=== PATIENT | female | born 1970 | race Caucasian/White ===

== ENCOUNTER → 2017-07-02 10:54 | Outpatient (CLI) | payer OTHER, SELFPAY ==
--- NOTE | 2017-07-02 10:56 | RAD_ITS ---
STUDY: X-RAY - RIGHT KNEE REASON FOR EXAM: Female, 46 years old. Chronic knee pain. TECHNIQUE: 4 view(s) of the knee. COMPARISON: None. FINDINGS: Normal visualized distal femur. Normal visualized proximal tibia and fibula. Normal proximal tibiofibular articulation. There is moderate degenerative arthrosis of the medial femorotibial compartment with moderate joint space narrowing. Normal lateral femorotibial compartment. There is mild degenerative arthrosis of the patellofemoral articulation. Calcification of the lateral meniscus in keeping with chondrocalcinosis. Minimal joint effusion. RAD/Knee 4 or More Views IMPRESSION: Degenerative arthrosis. Chondrocalcinosis. Electronically Signed: Peng Hair MD at 14:39 EST Tel [phone], Service support ,
== END ==
PROVIDERS: Visit Provider Orthopaedic Surgery
DX: M23.8X1 Other internal derangements of right knee (principal)
CPT/HCPCS: 73564

== ENCOUNTER 2017-09-25 05:52 | Inpatient (IN) | payer OTHER, SELFPAY ==
[2017-09-18 11:15] VITALS: BP 159/83; PULSE 75; RESP 16; TEMP 36.8; O2SAT 95; BMI 38.0
[2017-09-18 12:23] LABS: Mean Corpuscular Hgb 30.8 pg (27.0-32.0); Mean Corpuscular Volume 90.4 fL (81-99); Mean Platelet Vol. 9.3 fl (6.2-12.0); Platelet Count 237 K/mm3 (150-450); RBC Distribution Width CV 13.3 % (11.6-14.6); RBC Distribution Width SD 43.3 fl (35.1-43.9); White Blood Count 6.1 K/mm3 (4.4-11.0)
[2017-09-18 12:25] LABS: Scan Indicated on CBC? Y/N NO
[2017-09-18 12:48] LABS: Anion Gap 8 (5-15); BUN 12 mg/dL (7-18); BUN/Creat Ratio 14.7 RATIO (10-20); Calcium,Total 8.8 mg/dL (8.5-10.1); Chloride 105 mmol/L (98-107); Creatinine, Serum 0.82 mg/dL (0.55-1.02); EST Glomerular Filtration Rate 80 mL/min (>60); Est Glom Filt Rate - Afr Amer 97 mL/min (>60); Estimated Creatinine Clearance 84.25 ml/min; Glucose 82 mg/dL (74-106); Sodium Level 140 mmol/L (136-145)
--- NOTE | 2017-09-24 15:09 | CASEMGMT ---
CHANDAN POPE called and spoke with patient regarding discharge needs after upcoming surgery. Patient states she lives in a 2 story house with bed and bath setup on first floor. Patient lives with spouse and family. Patient states that she will be homebound and would like HHC for therapy for the first few weeks. Patient states that she needs a walker as well. CHANDAN POPE will assist with setting up HHC and obtaining script for FWW. CHANDAN POPE will follow up with patient after surgery and will assist with discharge needs. Disposition Plan: Patient to discharge home with HHC, family support, and follow-up plans in place.
[2017-09-25] VITALS (10 sets, daily range): BP systolic 119–159; BP diastolic 67–101; PULSE 60–73; RESP 16–18; TEMP 36.1–37.1; O2SAT 91–98; BMI 38.0
[2017-09-25] MEDS: Celecoxib 200 MG Capsule PO (06:24)
[2017-09-25] MEDS: oxyCODONE HCl Cr 10 MG Tablet PO ×2 (06:24→21:38)
[2017-09-25] MEDS: Lactated Ringers 1,000 ML 75 ML IV (06:50)
--- NOTE | 2017-09-25 07:15 | KNEE_PTH ---
PATIENT: JULISSA MCCLELLAND LOC: [facility]3 U#:[id number] AGE/SX: 46/F ROOM: MS316 RE09/25/[address]: Phil Jaramillo DO : 1970 BED: 1 DIS: 09/27/2017 SPEC #: [id number] RECD: 09/25/17 10:45 STATUS: SURAJ REIrma #: [id number] FRANCHESKA: 09/25/17 07:[address]: Phil Jaramillo DEPT: SURGICAL PATHOLOGY RECD BY: Armani Ugalde ENTERED: 09/25/17 12:23 SP TYPE: TOTAL KNEE OTHR DR: Dr. Mika Avila MD Tissues: Knee, NOS Procedures: Decalcification bone/plaque Surgery Specimen Level IV HEADER OPERATION: Total knee replacement PRE-OP DIAGNOSIS: Primary osteoarthritis of right knee, effusion right knee TISSUE SUBMITTED: Bone and tissue of right knee MICROSCOPIC DIAGNOSIS Bone and soft tissue of right knee, total knee resection: Severe degenerative joint disease. Mild synovial hyperplasia with associated mild chronic inflammation. AM:rajeev 09/28/17 MICROSCOPIC DESCRIPTION Slides are reviewed. GROSS DESCRIPTION Received is one container designated bone and soft tissue right knee. The specimen consists of multiple fragments of carlson-yellow bone measuring in aggregate 14 x 11 x 1.5 cm. Also in the specimen container are multiple fragments of yellow-white soft tissue measuring in aggregate 10 x 9 x 2 cm. A number of bony fragments contain articular surfaces consistent with tibial plateau and femoral condyle and displaying prominent osteophyte formation, eburnation, and bone erosion. Sterile Processing Technician sections are submitted in two cassettes as follows: 1 - soft tissue, 2 - bone after decalcification. / AM:rajeev 09/25/17 TC:5 [facility] [place]: [id number]
[2017-09-25] MEDS: Clindamycin 900 MG/50 ML BAG 75 MG IV (07:25)
--- NOTE | 2017-09-25 09:16 | PCM.IMDPSTOP ---
Immediate Post-Op Note Date of Procedure: 09/25/17 Primary Surgeon/Physician: Phil Jaramillo DO elevator pilot: Eduardo Montelongo Pre-Operative Diagnosis: Right knee osteoarthritis, history of psoriasis Post-Operative Diagnosis: Same as above Surgery/Procedure Performed:: Right total knee arthroplasty-Hema pawel Description of Surgical Findings:: See dictation Estimated Blood Loss: 50 Specimen's removed: Bone cuts Type of Anesthesia:: Spinal ASA Class: ASA2 Mod Systematic Disease - Admit VTE Documentation VTE Present on Admission: No VTE Mechan Device Prophylaxis: SCD's, Knee High PHILIPP Hose VTE Pharm Prophylaxis ordered?: Yes
--- NOTE | 2017-09-25 09:40 | RAD_ITS ---
STUDY: X-RAY - RIGHT KNEE REASON FOR EXAM: Female, 46 years old. Postoperative. TECHNIQUE: 2 view(s) of the knee. COMPARISON: None. FINDINGS: The patient is status post arthroplasty appearing in anatomic alignment. There are typical and expected immediate postoperative soft tissue findings. There is no significant incidental finding. RAD/Knee 1 or 2 Views IMPRESSION: Postoperative right knee arthroplasty in anatomic alignment. Typical and expected immediate postoperative soft tissue findings. No significant incidental finding. Electronically Signed: Moises Hutton MD at 10:10 EDT , Service support ,
[2017-09-25] MEDS: Ketorolac 15 MG/ML Vial IV (10:12)
--- NOTE | 2017-09-25 12:01 | PCM.OPRPT ---
Report of Operation Date of Procedure: 09/25/17 Pre-Operative Diagnosis: Right knee osteoarthritis, history of psoriasis Post-Operative Diagnosis: Same as above Surgery/Procedure Performed:: Right total knee arthroplasty-Ebervale pawel Description of Surgical Findings:: 46-year-old female with recalcitrant right knee pain that failed nonoperative management to include NSAIDs activity modifications physical therapy and a series of injections. Patient also had a previous diagnostic scope and meniscus debridement that showed high-grade chondromalacia to the patellofemoral joint in the medial compartment. Patient had a recent MRI that showed degenerative changes across the medial compartment was extruded medial meniscus significant effusion and osteoarthritis the patellofemoral joint. Having failed conservative measures and activities of daily living being affected including difficulty with work and standing for extended periods of time patient elected for operative intervention. Patient was counseled and consented for the aforementioned procedure. She is met in the holding area with the right lower extremity was marked and identified by the with surgeon. Patient was taken to the operating room in satisfactory condition with somewhat to place to identify patient operative procedure and limb. Patient received 900 clindamycin due to penicillin allergy. She also received 1 g of TXA. She had a well-placed tourniquet to the right proximal thigh after a successful spinal anesthesia. Patient was then prepped and draped in usual fashion. Right lower extremity was elevated Esmarch used for exsanguination and tourniquet was increased to 250 mmHg for roughly 60 minutes. Patient then had a longitudinal incision made 2 fingerbreadths above the patella down to the tibial tubercle. She then underwent a standard medial parapatellar approach. There was a large return effusion and the patient showed significant synovitis within knee joint probably consistent with her psoriasis and perhaps an underlying early psoriatic arthritis. Partial synovectomy was then undertaken. Anterior fat pad was resected. Patella was translated medially. We then made our standard intramedullary cut in order to pass the distal femoral cutting block. Patient had no flexion contracture she we took 8 mm with a 6? valgus cut off the distal femur. We then turned our attention to sizing. The patient sized to a size 3 femur. Standard cutting jig was placed and performed standard cuts. We then turned our attention to the proximal tibia cut. 3? of slope in anticipation of using CR components. Standard cut was performed with 2 mm off the medial aspect of the knee. We then placed a 9 mm spacer block to establish our flexion extension gaps. With excellent mechanical alignment and overall no signs of knee flexion extension gap abnormalities. The leg was then brought back in full extension and the remnant menisci were resected. The posterior lateral and anterior lateral geniculate vessels were then cauterized. PCL again was preserved. At that point time we turned our attention to sizing the patella. The patient's overall patella was roughly 22 mm in thickness we took off 10 and the patient sized to a size 32 asymmetric patella. Standard drill holes were placed in anticipation of a cemented patella component. The tibia and femur were then prepped using standard technique in anticipation of using press-fit components. Tibial guide had been seated in appropriate keel punch placed. We felt that the patient's tibia sized better to a size 4 tibial tray. The wound was then copiously irrigated excess debris was removed. Cement was prepared the back table using standard technique. We then impacted our tibial tray placed a 9 mm spacer and then introduced our press-fit femoral component. Overall alignment and mechanical stability was preserved. We then elected to implant a 9 mm CS Claudine. This was done using standard technique. We then placed our patella button using standard technique using a cemented technique. Cement cured. Upon completion range of motion was checked patient had excellent patellar tracking. We then copiously irrigated the joint additional multitude of times and then began our closure. The soft tissues were closed with the distal two thirds closed in 30? of knee flexion using #2 Vicryl and [id number] technique. The proximal one third was closed in full extension. Soft tissue was reapproximated 2-0 Vicryl running subicular Monocryl Dermabond and then a Silverlon dressing was applied. Tourniquet was let down during final closure at roughly 70 minutes. I was scrubbed and available time during our procedure. We had no drains or complications. Implants included the Ebervale triathlon 3 femur CR, 4 mm tibial tray 9 mm CS Claudine and a 32 patella button. All components were press-fit except for the patella which was cemented. Patient will be admitted to floor for 24 hours of IV antibiotics appropriate IV and p.o. pain medication and DVT prophylaxis to include SCDs teds and 325 p.o. twice daily of aspirin with GI prophylaxis. If you require any further formation please and visit contact me. energy management specialist: Eduardo Montelongo Type of Anesthesia:: Spinal Specimen's removed: Bone cuts Estimated Blood Loss (mL): 50 Grafts/Implants Used: Striker triathlon press-fit - Complications None - Admit VTE Documentation VTE Mechan Device Prophylaxis: SCD's, Knee High PHILIPP Fernando VTE Pharm Prophylaxis ordered?: Yes
[2017-09-25] MEDS: Morphine 2 MG/ML Syringe IV (12:52)
[2017-09-25] MEDS: Clindamycin 600 MG/50 ML BAG 100 MG IV ×2 (14:22→18:48)
[2017-09-25] MEDS: Famotidine 20 MG Tablet PO (14:27)
[2017-09-25] MEDS: DULoxetine Hcl 60 MG Capsule PO (14:27)
[2017-09-25] MEDS: Acetaminophen 500 MG Tablet 1000 MG PO ×2 (14:28→21:37)
[2017-09-25] MEDS: oxyCODONE 5 MG Tablet PO ×3 (14:31→23:57)
[2017-09-25] MEDS: Ascorbic Acid 500 MG Tablet PO (16:55)
[2017-09-25] MEDS: Senna/Docusate Sodium 1 Tablet 2 TABLET PO (21:37)
[2017-09-25] MEDS: Losartan Potassium 100 MG Tablet PO (21:38)
[2017-09-25] MEDS: amLODIPine 2.5 MG Tablet 5 MG PO (21:38)
[2017-09-25] MEDS: Atorvastatin Calcium 10 MG Tablet PO (21:38)
[2017-09-26] MEDS: 0.9% NaCl Peripheral Flush Adult/Peds IV ×2 (02:14→11:44)
[2017-09-26] MEDS: Clindamycin 600 MG/50 ML BAG 100 MG IV (02:14)
[2017-09-26 02:17] VITALS: BP 146/83; PULSE 76; RESP 18; TEMP 36.7; O2SAT 96
[2017-09-26] MEDS: Acetaminophen 500 MG Tablet 1000 MG PO ×3 (06:18→21:10)
[2017-09-26] MEDS: traMADol 50 MG Tablet PO (06:26)
[2017-09-26 07:03] LABS: Hematocrit 42.1 % (37-47); Hemoglobin 14.2 g/dl (12.0-15.0); Mean Corp Hgb Conc 33.7 g/gl (32-36); Mean Corpuscular Volume 91.9 fL (81-99); Mean Platelet Vol. 9.7 fl (6.2-12.0); Platelet Count 240 K/mm3 (150-450); RBC Distribution Width CV 13.7 % (11.6-14.6); RBC Distribution Width SD 45.2 fl (35.1-43.9); Red Blood Count 4.58 M/mm3 (4.2-5.4); White Blood Count 6.4 K/mm3 (4.4-11.0)
[2017-09-26 07:15] LABS: Scan Indicated on CBC? Y/N NO
[2017-09-26 07:25] LABS: Anion Gap 8 (5-15); BUN 9 mg/dL (7-18); BUN/Creat Ratio 11.1 RATIO (10-20); Calcium,Total 8.3 mg/dL (8.5-10.1); Chloride 106 mmol/L (98-107); Creatinine, Serum 0.81 mg/dL (0.55-1.02); EST Glomerular Filtration Rate 81 mL/min (>60); Est Glom Filt Rate - Afr Amer 98 mL/min (>60); Estimated Creatinine Clearance 85.29 ml/min; Glucose 112 mg/dL (74-106); Potassium 3.8 mmol/L (3.5-5.1); Sodium Level 139 mmol/L (136-145)
[2017-09-26 07:44] VITALS: BP 172/82; PULSE 81; RESP 18; TEMP 36.9; O2SAT 98
--- NOTE | 2017-09-26 07:47 | PCM.PN.ORT ---
Subjective: Postop day 1 status post right total knee arthroplasty. No major issues overnight. Patient states that she has been up moving and was sitting with her knee bent as of yesterday. Currently is just gotten up for breakfast this point time but states that her pain is controlled at this point. Patient anticipates doing outpatient physical therapy. No other issues at this time. No other fevers chills nausea vomiting chest pain or shortness of breath noted. - Physical Exam General: Alert, Oriented x3, Cooperative, No apparent distress Musculoskeletal: - - Distally neurovascular intact. SCDs teds in place. No calf pain negative Homans. Range of motion 0-45 after having just woken up. Lab values reviewed and stable. Hardware otherwise well seated well-placed. Vital Signs Temp Pulse Resp BP Pulse Ox 98.4 F 81 18 172/82 H 98 09/26/17 07:44 09/26/17 07:44 09/26/17 07:44 09/26/17 07:44 09/26/17 07:44 Oxygen Delivery Method Room Air Weight: 243 lb 2.718 oz Body Mass Index (BMI) 38.0 Intake and Output for Last 24 Hours 09/24/17 09/25/17 09/26/17 23:59 23:59 23:59 Intake Total 1797 / 1797 1394 / 1394 Balance 1797 / 1797 1394 / 1394 Laboratory Tests Past 24 Hrs 09/26/17 09/26/17 05:46 05:46 WBC 6.4 RBC 4.58 Hgb 14.2 Hct 42.1 MCV 91.9 MCH 31.0 MCHC 33.7 RDW 13.7 RDW Differential 45.2 H Plt Count 240 MPV 9.7 Sodium 139 Potassium 3.8 Chloride 106 Carbon Dioxide 25.0 Anion Gap 8 BUN 9 Creatinine 0.81 Estim Creat Clear Calc 85.29 Est GFR (MDRD) Af Amer 98 Est GFR (MDRD) Non-Af 81 BUN/Creatinine Ratio 11.1 Glucose 112 H Calcium 8.3 L Medical Necessity - Tobacco Use Smoking Status: Light Smoker (<10/day) Assessment/Plan Assessment: After orthopedics status post right total knee arthroplasty doing well. Plan: This point time discontinue to advanced through the total knee protocol. Anticipate discharge home either later today if the patient is doing very well versus tomorrow. Patient anticipates performing outpatient physical therapy. There are any issues please contact me.
[2017-09-26] MEDS: Famotidine 20 MG Tablet PO (07:48)
[2017-09-26] MEDS: Ascorbic Acid 500 MG Tablet PO ×2 (07:48→16:59)
[2017-09-26] MEDS: Multivitamins,Therapeutic Tablet 1 TABLET PO (07:48)
[2017-09-26] MEDS: Aspirin 325 MG Tablet PO ×2 (07:48→16:59)
[2017-09-26] MEDS: DULoxetine Hcl 60 MG Capsule PO (07:48)
[2017-09-26] MEDS: Senna/Docusate Sodium 1 Tablet 2 TABLET PO ×2 (07:52→21:10)
[2017-09-26] MEDS: oxyCODONE HCl Cr 10 MG Tablet PO ×2 (09:47→22:35)
--- NOTE | 2017-09-26 11:16 | CASEMGMT ---
RN CM Face to Face with patient for initial transition planning/care coordination assessment. RN CM introduced self and role at [facility]. Patient sitting in chair, alert and oriented. Patient willing to participate in assessment and is able to answer all questions appropriately. Care providers, pharmacy, and demographics verified. Patient states that she needs a walker which RN CM will assist in obtaining script and arrange for delivery to hospital prior to discharge. Patient wishes to discharge home with [facility] and is agreeable to [facility]. Patient states she has no further needs or concerns at this time. RN CM sent referral to [facility] and they are able to accept the patient. CM to follow for discharge planning needs that may arise. Disposition Plan: Patient to discharge home with [facility], family support, and follow-up plans in place.
[2017-09-26] MEDS: oxyCODONE 5 MG Tablet PO ×2 (11:43→19:06)
[2017-09-26] MEDS: Ondansetron 4 MG/2 ML Vial IV (11:44)
[2017-09-26 13:45] VITALS: BP 176/95; PULSE 67; RESP 18; TEMP 36.9; O2SAT 97
[2017-09-26 16:57] VITALS: BP 153/95
[2017-09-26 20:47] VITALS: BP 157/81; PULSE 69; RESP 18; TEMP 36.4; O2SAT 99
[2017-09-26] MEDS: amLODIPine 2.5 MG Tablet 5 MG PO (21:10)
[2017-09-26] MEDS: Losartan Potassium 100 MG Tablet PO (21:11)
[2017-09-26] MEDS: Atorvastatin Calcium 10 MG Tablet PO (21:11)
[2017-09-27] MEDS: traMADol 50 MG Tablet PO (00:58)
[2017-09-27 02:29] VITALS: BP 159/71; PULSE 73; RESP 18; TEMP 36.8; O2SAT 98
[2017-09-27] MEDS: Acetaminophen 500 MG Tablet 1000 MG PO (05:56)
[2017-09-27 06:05] LABS: Hematocrit 41.9 % (37-47); Hemoglobin 14.1 g/dl (12.0-15.0); Mean Corp Hgb Conc 33.7 g/gl (32-36); Mean Corpuscular Hgb 30.9 pg (27.0-32.0); Mean Corpuscular Volume 91.9 fL (81-99); Mean Platelet Vol. 9.1 fl (6.2-12.0); Platelet Count 250 K/mm3 (150-450); RBC Distribution Width CV 13.5 % (11.6-14.6); Red Blood Count 4.56 M/mm3 (4.2-5.4); White Blood Count 7.7 K/mm3 (4.4-11.0)
[2017-09-27 06:11] LABS: Scan Indicated on CBC? Y/N NO
[2017-09-27 06:24] LABS: Anion Gap 7 (5-15); BUN 7 mg/dL (7-18); BUN/Creat Ratio 8.3 RATIO (10-20); Calcium,Total 8.7 mg/dL (8.5-10.1); Chloride 104 mmol/L (98-107); Creatinine, Serum 0.85 mg/dL (0.55-1.02); EST Glomerular Filtration Rate 77 mL/min (>60); Est Glom Filt Rate - Afr Amer 93 mL/min (>60); Estimated Creatinine Clearance 81.28 ml/min; Glucose 123 mg/dL (74-106); Potassium 3.8 mmol/L (3.5-5.1); Sodium Level 138 mmol/L (136-145)
--- NOTE | 2017-09-27 07:03 | PCM.DC.TKR ---
Discharge Activity: Return to Normal Activity, May not drive while taking narcotic pain medications., May Shower, Use Walker May shower in (days): 1 May resume sexual activity in: No Restrictions Ice area for (Minutes): 20 Weight Bearing Status: Weight bearing as tolerated Elevate: Right Leg Additional Activity Instructions:: Flex and extend knee ad elisabeth. Work on aggressive range of motion. And gaining full extension. Call your doctor if your incision/area has: Continuous Slow Oozing, Sudden Increased Bleeding, Increased Pain/ Swelling, Increased Redness, Foul Smelling Discharge, Swelling at the incision site Call your doctor if you observe: Fever of 101 or Higher, Coldness, Increased Pain, Numbness or Tingling, Change in Color, Inability to urinate, Inability to have a bowel movement, Using more than one pad per hour, Shortness of breath, Dizziness, Fainting spells, Swelling in the ankles, Chest pain, Prolonged hiccoughing, Increased palpitations (irregular heartbeat), Calf discomfort, Uncontrolled pain Suture Line Care: Avoid Pulling/Pushing, Avoid Pinching/Bending Change Dressing in (Days):: 5 Remove Dressing in (days):: 5 Cleanse incision/area with: Soap & Water Additional Dressing/Incision Instructions:: Dressing stays on for 7 total days from date of operation unless there is sign of blister formation around edges. Dressing can then be removed and simple application of triple antibiotic Neosporin or bacitracin equivalent can be applied. Wash hands prior to touching wound. Allergies/Adverse Reactions: Allergies Penicillins Allergy (Verified 09/18/17 11:08) Epileptic fits pollen extracts Adverse Reaction (Intermediate, Verified 09/18/17 11:08) Hayfever symptoms hydrocodone bitartrate [From Lortab] Adverse Reaction (Verified 09/18/17 11:08) Hallucinations Medications to take at Discharge Duloxetine Hcl [Cymbalta] 60 mg PO DAILY 08/11/15 leflunomide 20 mg tablet 20 mg PO ONCE tab 07/02/17 atorvastatin 10 mg tablet 10 mg PO ONCE tab 09/05/17 amlodipine 2.5 mg tablet 5 mg PO .q day tab 09/14/17 furosemide 40 mg tablet 40 mg PO ONCE PRN 09/14/17 Losartan Potassium 100 mg PO ONCE 09/18/17 turmeric (bulk) 95 % powder 95 % MISCELLANEOUS BID 09/18/17 Aspirin E.C. [Ecotrin] 325 mg PO BID #30 tab 09/27/17 Docusate Sodium [Colace] 100 mg PO BID PRN PRN #10 cap 09/27/17 Famotidine [Pepcid] 40 mg PO DAILY #30 tab 09/27/17 Oxycodone HCl/Acetaminophen [Percocet 5/325] 1 - 2 tablet PO Q4H PRN PRN #60 tablet 09/27/17 proMETHazine tablet [Phenergan] 25 mg PO Q4H PRN PRN #10 tab 09/27/17 The following prescriptions were given: Oxycodone HCl/Acetaminophen [Percocet 5/325] 1 - 2 tablet PO Q4H PRN PRN #60 tablet PRN Reason: Pain proMETHazine tablet [Phenergan] 25 mg PO Q4H PRN PRN #10 tab PRN Reason: Nausea Docusate Sodium [Colace] 100 mg PO BID PRN PRN #10 cap PRN Reason: Constipation Famotidine [Pepcid] 40 mg PO DAILY #30 tab Aspirin E.C. [Ecotrin] 325 mg PO BID #30 tab Primary Care Physician: Mika Avila MD [Primary Care Provider] - Please Follow Up With: Phil Jaramillo DO When: call [facility] for appt for 2 weeks Proposed Discharge Date: 09/27/17
[2017-09-27] MEDS: Ascorbic Acid 500 MG Tablet PO (08:08)
[2017-09-27] MEDS: Aspirin 325 MG Tablet PO (08:08)
[2017-09-27] MEDS: Multivitamins,Therapeutic Tablet 1 TABLET PO (08:08)
[2017-09-27 08:09] VITALS: BP 160/94; PULSE 71; RESP 18; TEMP 36.8; O2SAT 97
[2017-09-27 09:50] VITALS: PULSE 76
[2017-09-27] MEDS: Famotidine 20 MG Tablet PO (09:56)
[2017-09-27] MEDS: DULoxetine Hcl 60 MG Capsule PO (09:56)
[2017-09-27] MEDS: Senna/Docusate Sodium 1 Tablet 2 TABLET PO (09:56)
[2017-09-27] MEDS: oxyCODONE HCl Cr 10 MG Tablet PO (09:57)
[2017-09-27 12:59] VITALS: BP 157/85; PULSE 77; RESP 18; TEMP 36.9; O2SAT 99
== END 2017-09-27 13:17 | disposition home or self-care (01) | DRG 470 ==
LOC: ACINP 05:53 → MS3 08:39
PROVIDERS: Admitting Provider Orthopaedic Surgery; Visit Provider Orthopaedic Surgery
PROC: 0SRC069 Replacement of Right Knee Joint with Oxidized Zirconium on Polyethylene Synthetic Substitute, Cemented, Open Approach (ICD-10-PCS; CPT 27447; principal; 2017-09-25 06:50)
DX: M17.11 Unilateral primary osteoarthritis, right knee (principal); M23.8X1 Other internal derangements of right knee; M25.461 Effusion, right knee; Z79.899 Other long term (current) drug therapy; I10 Essential (primary) hypertension; L40.9 Psoriasis, unspecified; M06.9 Rheumatoid arthritis, unspecified; M79.7 Fibromyalgia; F17.200 Nicotine dependence, unspecified, uncomplicated; Z85.41 Personal history of malignant neoplasm of cervix uteri; F41.9 Anxiety disorder, unspecified; F32.9 Major depressive disorder, single episode, unspecified
CPT/HCPCS: 36415; 73560; 80048; 85027; 87081; 88305; 88311; 97110; 97116; 97162; 97165; 97530; 97535; J7120; A4216; J2405

== ENCOUNTER → 2017-11-22 10:19 | Outpatient (CLI) | payer SELFPAY ==
--- NOTE | 2017-11-22 10:21 | RAD_ITS ---
STUDY: X-RAY - RIGHT KNEE REASON FOR EXAM: Female, 47 years old. 6 weeks postoperative TECHNIQUE: 4 view(s) of the knee. COMPARISON: September 25, 2017 FINDINGS: Stable appearance of right knee arthroplasty. No acute fracture or dislocation. No evidence of hardware failure. Prepatellar soft tissue swelling is noted RAD/Knee 4 or More Views IMPRESSION: As above Electronically Signed: Valentin Pan DO at 17:03 EDT Tel , Service support ,
== END ==
PROVIDERS: Visit Provider Orthopaedic Surgery
DX: M25.561 Pain in right knee (principal)
CPT/HCPCS: 73564

== ENCOUNTER → 2017-11-27 | Outpatient (CLI) | payer OTHER, SELFPAY | END | disposition home or self-care (01) | LOC: SL 20:44 | PROVIDERS: Visit Provider Nurse Practitioner Family | DX: G47.33 Obstructive sleep apnea (adult) (pediatric) (principal); G47.34 Idiopathic sleep related nonobstructive alveolar hypoventilation | CPT/HCPCS: 95810 ==

== ENCOUNTER 2018-09-19 11:00 | Emergency (ER) | payer OTHER, SELFPAY ==
[2018-09-19 11:02] VITALS: BP 185/90; PULSE 95; RESP 17; TEMP 37.1; O2SAT 98; BMI 35.2
--- NOTE | 2018-09-19 11:07 | EKG12_ITS ---
Test Reason : SOB Blood Pressure : / mmHG Vent. Rate : 088 BPM Atrial Rate : 088 BPM P-R Int : 146 ms QRS Dur : 082 ms QT Int : 352 ms P-R-T Axes : -18 052 079 degrees QTc Int : 425 ms Normal sinus rhythm Nonspecific T wave abnormality Abnormal ECG Confirmed by BOBO JAMES, LUCIO ([id number]), assistant film editor PATRIC HARTLEY ([id number]) on 09/23/2018 10:24:34 AM Referred By: ANNIKA Confirmed By:LUCIO BROUSSARD MD
--- NOTE | 2018-09-19 11:17 | CT_ITS ---
STUDY: CT ABDOMEN AND PELVIS WITHOUT CONTRAST REASON FOR EXAM: Female, 47 years old. Diarrhea. Dehydration. RADIATION DOSAGE (If Supplied By Facility): CTDIvol = ( 21.15 ) mGy, DLP = ( 1178.26 ) mGycm TECHNIQUE: Transaxial images were obtained from the dome of the diaphragm to the symphysis pubis without oral contrast, and without intravenous contrast. Sagittal and coronal images were reconstructed. Individualized dose optimization techniques were used for this CT. COMPARISON: Ultrasound dated February 05, 2013. FINDINGS: Lung bases: Mild air trapping. Tiny right middle lobe 2 mm nodules (axial image 5 series 2). Heart: Coronary artery disease. Liver: Hepatic steatosis. Hepatic granuloma (axial image 20 series 2). Gallbladder/biliary ducts: Unremarkable. Pancreas: Unremarkable. Spleen: Splenomegaly. Splenic granulomas. Adrenal glands: Unremarkable. Kidneys/ureters/bladder: Unremarkable. Uterus/adnexa: Hysterectomy. Large bowel/small bowel: Diffuse mild colonic wall thickening (axial images 152 through 157 series 2). Extensive colonic diverticulosis. No focal acute diverticulitis. No perforation. No obstruction. No pneumatosis. Noted small bowel process. Appendix: Unremarkable (axial image 105 series 2). Gastroesophageal junction/stomach: Unremarkable. Retroperitoneum/lymph nodes: No intra-abdominal free air. No ascites. Shotty para-aortic lymph nodes. Vascular: Vascular calcifications. No aneurysm. Osseous structures: Transitional lumbosacral anatomy. No acute process. Mild multilevel degenerative changes. Subcutaneous/soft tissues: No acute process. Tiny fat-containing umbilical hernia. Fat-containing ventral hernia (axial image [address]/Abdomen/Pelvis without Cont IMPRESSION: Mild uncomplicated pancolitis Mild air trapping was tiny 2 mm right lung nodules Hepatic steatosis and splenomegaly Chronic granulomatous findings Additional nonemergent findings, as above Electronically Signed: Lam Manrique DO at 12:43 EDT Tel , Service support ,
--- NOTE | 2018-09-19 11:42 | ED.DCSUM_ITS ---
- ER Visit Summary Date of Service: 09/19/18 Chief Complaint: [] Vomiting diarrhea for 5 days History of Present Illness: The patient is a 47 F [] in by her PCP today and sent into the ED for evaluation related to vomiting and diarrhea for 5 days she indicates she believes for unspecified reasons that her son had norovirus as he had a similar illness, she indicates she is vomiting square stomach content loose watery diarrheal bowel movements, no fever no cough no blood per rectum or vomit, no history of any GI ailments no fever try to eat today and could not Physical Examination: [] Vital signs are within normal range General, no distress resting comfortably HEENT is generally unremarkable The neck is supple no adenopathy Cardiovascular, regular rate and rhythm Lungs, clear bilateral Abdomen, soft nontender, subjective nonspecific abdominal discomfort diffusely no rebound or guarding Extremities, no clubbing cyanosis or edema Neurologic, awake alert answering questions appropriately moving all 4 extremities Test Results: [] Emergency Department Course and Treatment: [] copious diarrhea nonspecific abdominal discomfort IV fluid screening labs stool analysis Patient CBC chemistry labs are generally unremarkable, the CT shows nothing acute nonemergent findings, pancolitis, but again she has diffuse abdominal discomfort and diarrhea, she had no vomiting or diarrhea here I discussed all the above with her at this time she is received IV fluids she will be discharged home on Zofran force fluids she can write stool cultures and samples will send those versus doing as an outpatient she stopped her family physician and return for change in symptoms Treatment Plan: [] Disposition: [] Home stable Impression: [] Vomiting and diarrhea improved This note was generated with [employer] dictation software. It may contain incorrect words, spelling, and punctuation that were not noted in review of the chart prior to signing ED Disposition - Plan for ED Patient: Referrals: Mika Avila MD [Primary Care Provider] -
[2018-09-19] MEDS: Ondansetron 4 MG/2 ML Vial IV (11:57)
[2018-09-19] MEDS: 0.9% Normal Saline 1,000 ML 1000 ML IV (11:57)
[2018-09-19] MEDS: Morphine 4 MG/ML Syringe IV (11:57)
[2018-09-19 12:04] VITALS: RESP 18
[2018-09-19 12:13] LABS: Bacteria 0 SEEN /hpf (None Seen); Red Blood Cells-Urine 0 SEEN /hpf (0-5)
[2018-09-19 12:17] LABS: Color, Urine Yellow (Yellow); Glucose, Dipstick Normal (Normal); Ketone-Dipstick Negative (Negative); Leukocyte Esterase-Dipstick 25 /ul (Negative); Nitrite-Dipstick Negative (Negative); Occult Blood-Urine 10 /ul (Negative); Protein-Dipstick 30 mg/dl (Negative); Specific Gravity, Urine 1.015 (1.002-1.030); Urine Bilirubin Dipstick Negative (Negative); Urine Clarity Clear (Clear); Urine Urobilinogen Normal (Normal)
[2018-09-19 12:22] LABS: Absolute Lymphocyte Count 0.93 X10^3/ul (0.83-4.51); Absolute Neutrophil Count 3.9 X10^3/uL (2.0-7.7); Basophil# 0.04 X10^3/uL; Basophil% 0.7 % (0-1); Eosinophil# 0.08 X10^3/uL; Eosinophils% 1.3 % (0-5); Hematocrit 43.9 % (37-47); Hemoglobin 15.2 g/dl (12.0-15.0); Lymphocyte # 0.93 X10^3/ul (4.0); Lymphocyte % 15.1 % (19-41); Mean Corp Hgb Conc 34.6 g/gl (32-36); Mean Corpuscular Hgb 29.1 pg (27.0-32.0); Mean Corpuscular Volume 84.1 fL (81-99); Monocyte# 1.13 X10^3/uL; Monocyte% 18.4 % (0-10); Neutrophil # 3.89 X10^3/uL (2.7-7.7); Neutrophil % 63.4 % (47-70); Platelet Count 218 K/mm3 (150-450); RBC Distribution Width CV 14.6 % (11.6-14.6); RBC Distribution Width SD 44.4 fl (35.1-43.9); Red Blood Count 5.22 M/mm3 (4.2-5.4); White Blood Count 6.1 K/mm3 (4.4-11.0)
[2018-09-19 12:27] LABS: Mucous, Urine 2+ /hpf (<or=2+); Squamous Epithelial Cells - UA 0-5 SEEN /hpf (5-10)
[2018-09-19 12:27] LABS: POSITIVE COUNT NO; POSITIVE DIFFERENTIAL NO; POSITIVE MORPHOLOGY NO
[2018-09-19 12:29] LABS: White Blood Cells 0-5 SEEN /hpf (0-5)
[2018-09-19 12:36] LABS: AST(SGOT) 15 U/L (15-37); Alanine Aminotransfer ALT/SGPT 19 U/L (13-56); Albumin, Serum 3.4 g/dL (3.2-5.0); Alkaline Phosphatase 55 U/L (45-117); Anion Gap 7 (5-15); BUN 10 mg/dL (7-18); BUN/Creat Ratio 10.6 RATIO (10-20); Bilirubin, Direct 0.11 mg/dL (0.00-0.30); Calcium,Total 8.3 mg/dL (8.5-10.1); Chloride 106 mmol/L (98-107); Creatinine, Serum 0.94 mg/dL (0.55-1.02); EST Glomerular Filtration Rate 68 mL/min (>60); Est Glom Filt Rate - Afr Amer 82 mL/min (>60); Estimated Creatinine Clearance 72.72 ml/min; Globulin 3.8 g/dL (2.2-4.2); Glucose 106 mg/dL (74-106); Lipase 89 U/L (73-393); Potassium 3.1 mmol/L (3.5-5.1); Protein, Total 7.2 g/dL (6.4-8.2); Sodium Level 137 mmol/L (136-145)
--- NOTE | 2018-09-19 13:21 | ED.DEP ---
ED Disposition - Plan for ED Patient: Instructions: ED Vomiting Diarrhea Nonspecific Ad, ED Diet Vomiting Diarrhea Prescriptions: Ondansetron [Zofran Odt] 4 mg PO Q8H PRN PRN #10 tab PRN Reason: Nausea Referrals: Mika Avila MD [Primary Care Provider] -
== END 2018-09-19 13:57 | disposition home or self-care (01) ==
LOC: ED 11:31
PROVIDERS: Emergency Provider Emergency Medicine
DX: R19.7 Diarrhea, unspecified (principal); Z79.82 Long term (current) use of aspirin
CPT/HCPCS: 74176; 80048; 80076; 81001; 83690; 84484; 85025; 87506; 93005; 96374; 96375; 99285; J7030; A4216; J2405

== ENCOUNTER → 2019-08-15 13:01 | Outpatient (CLI) | payer MEDICAID, SELFPAY ==
[2019-08-07 10:14] VITALS: BMI 35.2
--- NOTE | 2019-08-15 13:03 | BI_ITS ---
MAMMOGRAPHY - BILATERAL SCREENING REASON FOR EXAM: Female, 48 years old. Routine annual screening examination. PERTINENT HISTORY: Non-contributory. TECHNIQUE: Digital bilateral breast navneet (3D mammographic acquisition) in the CC and MLO projections. 2-D mediolateral oblique (MLO) and craniocaudad (CC) views of both breasts were obtained. CAD: Full Field Digital Mammography with Computer Added Detection was performed. COMPARISON: Comparison is made with prior ocular examination dated April 22, 2015. FINDINGS: Breast Composition: The breasts are almost entirely fatty. There are no dominant masses or suspicious calcifications. No other significant abnormalities are identified. There has been no significant change since the prior study. BI/SCREEN MAMM (CAD) W/NAVNEET BILAT IMPRESSION: Stable bilateral screening mammogram. Yearly follow-up mammogram recommended. (A) ASSESSMENT CATEGORY: BIRADS Category 1: Negative. A letter regarding these results will be sent to the patient by the facility within 30 days. Approximately 10% of breast cancers are not detected by mammography. A normal mammogram should not delay biopsy of a clinically suspicious abnormality. [id number] Electronically Signed: Peng Hair, at 15:35 EDT , Service support ,
== END ==
PROVIDERS: Referring Provider Nurse Practitioner Women's Health; Visit Provider Nurse Practitioner Women's Health
DX: Z12.31 Encounter for screening mammogram for malignant neoplasm of breast (principal)
CPT/HCPCS: 77063; 77067

== ENCOUNTER → 2020-05-05 09:39 | Outpatient (CLI) | payer MEDICAID, SELFPAY ==
[2020-04-15 11:23] VITALS: BMI 40.0
--- NOTE | 2020-05-06 09:53 | PFT ---
INTRODUCTION: The patient is a 49-year-old female that presents for pulmonary function studies secondary to a diagnosis of rheumatoid arthritis. Respiratory therapy reports good patient effort. Bronchodilators were used during testing. INTERPRETATION: Forced expiration spirometry demonstrates no evidence of a large airways obstructive ventilatory defect. There was no significant response to aerosolized bronchodilators. Spirograms are of good quality and plateau normally. Body plethysmography was performed and reveals a decreased TLC to 4.08 L, 73% of predicted, indicative of a mild restrictive ventilatory impairment. The remainder of the lung volumes are symmetrically reduced. Diffusing capacity by single breath CO is reduced at 67% of predicted. IMPRESSION: Mild restrictive ventilatory impairment with symmetric reduction in diffusing capacity.
== END ==
PROVIDERS: Referring Provider Internal Medicine Critical Care Medicine; Visit Provider Internal Medicine Critical Care Medicine
DX: M06.9 Rheumatoid arthritis, unspecified (principal)
CPT/HCPCS: 94060; 94726; 94729

== ENCOUNTER → 2020-05-10 12:32 | Outpatient (CLI) | payer MEDICAID, SELFPAY ==
[2020-04-15 11:23] VITALS: BMI 40.0
[2020-05-10 12:56] VITALS: PULSE 77; PULSE 95; PULSE 96; PULSE 97; PULSE 98; O2SAT 93; O2SAT 94; O2SAT 96; O2SAT 97
--- NOTE | 2020-05-11 05:55 | PCM.PSN.6M ---
PSN 6 Minute Walk Test - 6 Minute Walk Test 6 Minute Walk Test: 6 Minute Walk Test PSN:6-Minute Walk Test Start: 05/10/20 12:56 Freq: Status: Active Protocol: [id number].[id number] Document 05/10/20 12:56 HAYDEN (Rec: 05/10/20 12:59 HAYDEN [id number]) 6 Minute Walk Test Date Performed 05/10/20 Time Performed 12:30 Height 5 ft 7 in Weight: 107.955 kg Weight in Pounds 238.[address]: Mayito Whitfield Assistive device used: None Pre-test Oxygen Delivery Method Room Air Pulse Ox (%) 97 Pulse Rate (60-100 beats/min) 77 Dyspnea Anna Scale (0-10) 0.5 Exertion Anna Scale (6-20) 6 1st minute Oxygen Delivery Method Room Air Pulse Ox (%) 93 Pulse Rate (60-100 beats/min) 98 2nd minute Oxygen Delivery Method Room Air Pulse Ox (%) 93 Pulse Rate (60-100 beats/min) 96 3rd minute Oxygen Delivery Method Room Air Pulse Ox (%) 93 Pulse Rate (60-100 beats/min) 95 4th minute Oxygen Delivery Method Room Air Pulse Ox (%) 94 Pulse Rate (60-100 beats/min) 96 5th minute Oxygen Delivery Method Room Air Pulse Ox (%) 93 Pulse Rate (60-100 beats/min) 97 6th minute Oxygen Delivery Method Room Air Pulse Ox (%) 94 Pulse Rate (60-100 beats/min) 98 Dyspnea Anna Scale (0-10) 1 Exertion Anna Scale (6-20) 11 Post-test Oxygen Delivery Method Room Air Pulse Ox (%) 96 Pulse Rate (60-100 beats/min) 77 Full Laps Walked 20 Partial Lap, Number of Tiles Walked 12 Total Distance Walked (ft) 1192 - Interpretation Interpretation: The patient was able to ambulate 1192 feet over the course of 6 minutes on room air with a significant desaturation as low as 93%. Patient did have a peak heart rate of 98 bpm noted. These findings are consistent with a respiratory limitation exercise tolerance. - Recommendations Recommendations: Patient requires no supplemental oxygen at this time. However, patient will need to be followed closely given level of desaturation.
== END ==
PROVIDERS: Referring Provider Internal Medicine Critical Care Medicine; Visit Provider Internal Medicine Critical Care Medicine
DX: M06.9 Rheumatoid arthritis, unspecified (principal)
CPT/HCPCS: 94618

== ENCOUNTER → 2020-07-02 11:04 | Outpatient (CLI) | payer MEDICAID, SELFPAY ==
[2020-05-19 13:55] VITALS: BMI 39.6
--- NOTE | 2020-07-02 11:05 | ECHOD_ITS ---
Reason For Study: SOB Procedure This was a 2D Doppler, Color Flow transthoracic echocardiogram. Myocardial strain analysis was performed in this exam to aid in the assessment of cardiac function. Exam performed in department. Left Ventricle Normal LV size. The estimated ejection fraction is 65 %. No evidence for diastolic dysfunction. No regional wall motion abnormalities noted. Right Ventricle Normal RV size. Normal systolic function. Atria Normal left atrium. Normal right atrium. No doppler evidence for ASD. Mitral Valve There is no mitral valve stenosis. No mitral valve insufficiency. Tricuspid Valve There is no tricuspid stenosis. Trivial tricuspid valve insufficiency. Unable to estimate RV systolic pressure due to insufficient tricuspid regurgitant envelope. Aortic Valve Trisinus/trileaflet aortic valve. Mild diffuse aortic valve thickening. There is no aortic stenosis. No aortic valve insufficiency. Pulmonic Valve There is no pulmonic valvular stenosis. No pulmonic valve insufficiency. Great Vessels Normal aortic root. Pericardium/Pleural No pericardial effusion. MMode/2D Measurements & Calculations LVIDd: 3.9 cm IVSd: 1.4 cm Ao root diam: 3.2 cm LVIDs: 2.1 cm LVPWd: 1.3 cm RVDd: 3.3 cm FS: 45.3 % LAV(MOD-bp): 56.9 ml EDV(MOD-sp4): 72.8 ml EDV(MOD-sp2): 75.6 ml LAV(MOD-bp) Indexed: 26.3 ml/m2 ESV(MOD-sp4): 23.0 ml EF(MOD-sp2): 68.3 % LAV(MOD-sp2): 56.0 ml EF(MOD-sp4): 68.5 % LAV(MOD-sp4): 56.0 ml SV(MOD-sp4): 49.9 ml SV(MOD-sp2): 51.6 ml LA A4 area: 19.4 cm2 LA dimension(2D): 3.7 cm RA A4 area: 14.8 cm2 Doppler Measurements & Calculations MV E max homero: 81.2 cm/sec Lat Peak E' Homero: 8.9 cm/sec Med Peak E' Homero: 7.2 cm/sec MV A max homero: 80.8 cm/sec E/E' lat: 9.1 E/E' med: 11.3 MV E/A: 1.0 Ao V2 max: 138.0 cm/sec LV V1 max: 116.2 cm/sec PA V2 max: 123.1 cm/sec Ao max P.6 mmHg LV V1 max P.4 mmHg TR max homero: 257.2 cm/sec TR max P.5 mmHg Interpretation Summary The estimated ejection fraction is 65 %. No evidence for diastolic dysfunction. Ordering Physician: Flavia Rachel Referring Physician: Flavia Rachel Performed By: Brittny Barber RDCS
== END ==
PROVIDERS: PCP Nurse Practitioner Family; Referring Provider Nurse Practitioner Acute Care; Visit Provider Nurse Practitioner Acute Care
DX: R06.02 Shortness of breath (principal); R06.00 Dyspnea, unspecified; I10 Essential (primary) hypertension
CPT/HCPCS: 93306